=== PATIENT | female | born 1955 | race Asian ===

== ENCOUNTER 2020-10-04 14:26 | Emergency (ER) | payer OTHER ==
[~2020-10-04] VITALS: Ht 157.5 cm; Wt 70.5 kg
[2020-10-04] MEDS ORDERED: ATOR20TA86 PO (14:32)
[2020-10-04] MEDS ORDERED: LOSA25TA21 PO (14:32)
[2020-10-04] MEDS ORDERED: LEVO50 PO (14:32)
[2020-10-04] MEDS ORDERED: TRIA1TAB93 PO (14:32)
[2020-10-04 15:43] VITALS: BP 143/78
== END 2020-10-04 15:53 | disposition home or self-care (01) ==
LOC: EMS 14:26
DX: Z04.3 Encounter for examination and observation following other accident (principal); I10 Essential (primary) hypertension; Z88.8 Allergy status to other drugs, medicaments and biological substances; V49.9XXA Car occupant (driver) (passenger) injured in unspecified traffic accident, initial encounter; Y93.89 Activity, other specified; Y92.89 Other specified places as the place of occurrence of the external cause; Y99.8 Other external cause status

== ENCOUNTER → 2022-10-20 | Outpatient (CLI) | payer MEDICARE, OTHER ==
[~2022-10-20] VITALS: Ht 157.5 cm; Wt 67.0 kg
[~2022-10-20] MED LIST: ACET-2247 PO; ATOR20TA86 PO; EMPA10TA3 PO; LEVO50 PO; LOSA-381 PO; TRIA1TAB PO
[2022-10-20 14:57] VITALS: BP 128/66
== END | disposition home or self-care (01) ==
LOC: SRCNTR 13:51
PROVIDERS: ATTEND Internal Medicine
DX: I44.0 Atrioventricular block, first degree (principal); R01.1 Cardiac murmur, unspecified; E11.9 Type 2 diabetes mellitus without complications; I10 Essential (primary) hypertension; E03.9 Hypothyroidism, unspecified
CPT/HCPCS: 93005; G0463

== ENCOUNTER → 2022-10-27 | Outpatient (CLI) | payer MEDICARE, OTHER | END | disposition home or self-care (01) | LOC: RADPV 13:01 | PROVIDERS: ATTEND Internal Medicine | DX: I07.1 Rheumatic tricuspid insufficiency (principal); R01.1 Cardiac murmur, unspecified | CPT/HCPCS: 93306 ==

== ENCOUNTER → 2022-11-03 | Outpatient (CLI) | payer MEDICARE, OTHER ==
[~2022-11-03] VITALS: Ht 160 cm; Wt 67.0 kg
[2022-11-03 15:13] VITALS: BP 137/74
== END | disposition home or self-care (01) ==
LOC: SRCNTR 14:49
PROVIDERS: ATTEND Internal Medicine
DX: E11.9 Type 2 diabetes mellitus without complications (principal); E03.9 Hypothyroidism, unspecified; R01.1 Cardiac murmur, unspecified
CPT/HCPCS: G0463